=== PATIENT | male | born 1955 | race Caucasian/White ===

== ENCOUNTER 2018-06-06 14:20 | Emergency (ER) | payer OTHER ==
--- NOTE | 2018-06-06 15:11 | RAD REPORT ---
EXAM DESCRIPTION: CT - Head Brain Wo Cont - 06/06/2018 2:59 pm CLINICAL HISTORY: DIZZINESS<Reason For Exam>DIZZINESS Weakness, hypertension COMPARISON: No comparisons<Comparisons> TECHNIQUE: Axial 5 mm thick images of the head were obtained without IV contrast. All CT scans are performed using dose optimization technique as appropriate and may include automated exposure control or mA/KV adjustment according to patient size. FINDINGS: No intracranial hemorrhage, mass, edema or shift of mid-line structures. No acute infarcti on changes seen. No abnormal extra-axial fluid collections. Ventricles are normal. Mastoid air cells and visualized portions of the paranasal sinuses are clear. No acute bony findings. IMPRESSION: Negative non-contrast CT head examination.
[2018-06-06] MEDS ORDERED: MECLIZINE HCL 12.5 MG TAB ONE (16:05)
[2018-06-06] MEDS ORDERED: NA CHLORIDE 0.9% 1,000 ML ONE (16:05)
[2018-06-06] MEDS ORDERED: ONDANSETRON 4 MG/2 ML VIAL ONE (16:05)
[2018-06-06 16:11] LABS: Absolute Lymphocytes (CBC) 1.1 K/uL (0.7-4.9); Absolute Monocytes 0.7 K/uL (0.1-1.3); Absolute Neutrophil 7.3 K/uL (1.8-8.0); Basophils % 0.6 % (0-1.3); Eosinophils % 1.5 % (0-4.4); Hematocrit 44.3 % (39.6-49.0); Lymphocytes % 12.1 % (15.3-44.8); MCH 29.1 pg (27.0-35.0); MCV 85.7 fL (80-100); MPV 8.1 fL (7.6-11.3); Monocytes % 7.2 % (3.3-12.3); RBC Red Blood Cell Count 5.17 M/uL (4.33-5.43)
[2018-06-06 16:32] LABS: ALT/SGPT 25 U/L (12-78); AST/SGOT 14 U/L (15-37); Albumin 3.7 g/dL (3.4-5.0); Alkaline Phosphatase 69 U/L (45-117); BUN Blood Urea Nitrogen 22 mg/dL (7-18); Bicarbonate 31 mmol/L (21-32); Bilirubin Direct 0.1 mg/dL (0-0.2); Bilirubin Total 0.5 mg/dL (0.2-1.0); CKMB Creatine Kinase MB < 1.0 ng/mL (0.3-3.6); Creatine Phosphokinase 69 U/L (39-308); Glucose Level 135 mg/dL (74-106); Magnesium 2.5 mg/dL (1.8-2.4); NT PRO-BNP 30 pg/mL (<125); Potassium 4.5 mmol/L (3.5-5.1); Protein, Total 7.1 g/dL (6.4-8.2); Sodium Level 140 mmol/L (136-145); Troponin (Emerg Dept Use Only) < 0.02 ng/mL (0.0-0.045)
[2018-06-06 16:33] LABS: Protime INR 0.99
--- NOTE | 2018-06-06 17:10 | EDPHYS ---
Physician Documentation [facility] Name: Juan Carlos Yousif Age: 62 yrs Sex: Male : 1955 Arrival Date: 06/06/2018 Time: 14:23 Bed 30 Private MD: Daniela Singh ED Physician Cas Cabezas HPI: 06/06 15:25 This 62 yrs old Male presents to ER via Ambulatory with complaints of cp Dizziness. 15:25 The patient presents with feeling faint, lightheadedness. Onset: The symptoms/episode cp began/occurred yesterday. Modifying factors: the symptoms are aggravated by bending over and lying flat. Associated signs and symptoms: Pertinent positives: abdominal pain, Pertinent negatives: chest pain, focal weakness, headache, shortness of breath, syncope, vomiting. Patient's baseline: Neuro: alert and fully oriented, Motor: no deficits, Ambulation: walks without assistance, Speech: normal. Historical: - Allergies: 14:27 No Known Allergies; la1 - PMHx: 14:27 Hypertension; High Cholesterol; la1 - Immunization history:: Adult Immunizations up to date. - Social history:: Smoking status: Patient/guardian denies using tobacco. - Ebola Screening: : No symptoms or risks identified at this time. ROS: 15:30 Constitutional: Negative for body aches, chills, fever, poor PO intake. cp 15:30 Eyes: Negative for injury, pain, redness, and discharge. cp 15:30 ENT: Negative for drainage from ear(s), ear pain, sore throat, difficulty swallowing, difficulty handling secretions. 15:30 Cardiovascular: Negative for chest pain, edema, palpitations. 15:30 Respiratory: Negative for cough, shortness of breath, wheezing. 15:30 Abdomen/GI: Negative for abdominal pain, nausea, vomiting, and diarrhea, constipation, anorexia, black/tarry stool, rectal bleeding. 15:30 : Negative for urinary symptoms. 15:30 Skin: Negative for cellulitis, rash. 15:30 Neuro: Positive for dizziness, Negative for altered mental status, headache, numbness, syncope, near syncope, weakness. 15:30 All other systems are negative. Exam: 15:35 Constitutional: The patient appears in no acute distress, alert, awake, cp non-diaphoretic, non-toxic, well developed, well nourished. 15:35 Head/Face: Normocephalic, atraumatic. Eyes: Pupils equal round and reactive to light, cp extra-ocular motions intact. Lids and lashes normal. Conjunctiva and sclera are non-icteric and not injected. Cornea within normal limits. Periorbital areas with no swelling, redness, or edema. ENT: Nares patent. No nasal discharge, no septal abnormalities noted. Tympanic membranes are normal and external auditory canals are clear. Oropharynx with no redness, swelling, or masses, exudates, or evidence of obstruction, uvula midline. Mucous membranes moist. Chest/axilla: Normal chest wall appearance and motion. Nontender with no deformity. No lesions are appreciated. 15:35 Cardiovascular: Rate: bradycardic, Rhythm: regular, Pulses: Pulses are 2+ in right radial artery and left radial artery. Heart sounds: murmur, not appreciated, Edema: is not appreciated, JVD: is not appreciated. 15:35 Respiratory: the patient does not display signs of respiratory distress, Respirations: normal, no use of accessory muscles, no retractions, no splinting, no tachypnea, labored breathing, is not present, Breath sounds: are clear throughout, no decreased breath sounds, no stridor, no wheezing. 15:35 Abdomen/GI: Inspection: abdomen appears normal, Bowel sounds: active, all quadrants, Palpation: abdomen is soft and non-tender, in all quadrants. 15:35 Skin: cellulitis, is not appreciated, no rash present. 15:35 Neuro: Orientation: to person, place \T\ time. Mentation: lucid, able to follow commands, Cerebellar function: is grossly normal, Motor: moves all fours, strength is normal, Sensation: no obvious gross deficits. 16:30 ECG was reviewed by the Attending Physician. cp Vital Signs: 14:27 BP 175 / 83; Pulse 60; Resp 19; Temp 97.5(TE); Pulse Ox 100% on R/A; Weight 79.38 kg; la1 Height 5 ft. 8 in. (172.72 cm); 15:06 BP 155 / 75; Pulse 57; Resp 18; Pulse Ox 99% on R/A; Pain 2/10; mg2 16:10 BP 145 / 77 Supine; mg2 16:10 BP 146 / 79 Sitting; mg2 16:10 BP 148 / 76 Standing; mg2 17:37 BP 147 / 70; Pulse 59; Resp 18; Pulse Ox 100% on R/A; Pain 0/10; mg2 14:27 Body Mass Index 26.61 (79.38 kg, 172.72 cm) la1 MDM: 15:19 Patient medically screened. cp 16:00 Differential diagnosis: cardiac arrhythmia, CVA, GI bleed, hypovolemia, idiopathic cp dizziness, TIA, vertigo. 17:08 Data reviewed: vital signs, nurses notes, lab test result(s), EKG, radiologic studies, cp CT scan, and as a result, I will discharge patient. Response to treatment: the patient's symptoms have markedly improved after treatment. 06/06 15:37 Order name: Basic Metabolic Panel; Complete Time: 16:44 cp 06/06 16:44 Interpretation: Normal except: GLUC 135; BUN 22; GFR 62. 06/06 15:37 Order name: CBC with Diff; Complete Time: 16:44 06/06 16:45 Interpretation: Normal except: CANDIDO% 78.6; LYM% 12.1. cp 06/06 15:37 Order name: Ckmb; Complete Time: 16:44 cp 06/06 15:37 Order name: CPK; Complete Time: 16:44 cp 06/06 15:37 Order name: LFT's; Complete Time: 16:44 cp 06/06 15:37 Order name: Magnesium; Complete Time: 16:44 cp 06/06 14:30 Order name: Head Brain Wo Cont CT; Complete Time: 15:22 [facility] 06/06 15:37 Order name: NT PRO-BNP; Complete Time: 16:44 cp 06/06 15:37 Order name: PT-INR; Complete Time: 16:44 cp 06/06 15:37 Order name: Ptt, Activated; Complete Time: 16:44 cp 06/06 15:37 Order name: Troponin (emerg Dept Use Only); Complete Time: 16:44 cp 06/06 16:46 Interpretation: Reviewed. cp 06/06 15:37 Order name: XRAY Chest (1 view) 06/06 16:46 Order name: Urine Dipstick--Ancillary (enter results) 06/06 15:29 Order name: Orthostatics; Complete Time: 16:09 cp 06/06 15:37 Order name: EKG; Complete Time: 15:39 cp 06/06 15:37 Order name: Cardiac monitoring; Complete Time: 16:23 cp 06/06 15:37 Order name: EKG - Nurse/Tech; Complete Time: 16:23 cp 06/06 15:37 Order name: IV Saline Lock; Complete Time: 16:09 cp 06/06 15:37 Order name: Labs collected and sent; Complete Time: 16:09 cp 06/06 15:37 Order name: O2 Per Protocol; Complete Time: 16:09 cp 06/06 15:37 Order name: O2 Sat Monitoring; Complete Time: 16:09 cp 06/06 15:37 Order name: Urine Dipstick-Ancillary (obtain specimen); Complete Time: 16:46 cp EC:30 Rate is 54 beats/min. Rhythm is regular. MO interval is normal. QRS interval is normal. cp QT interval is normal. No ST changes noted. Interpreted by me. Reviewed by me. Administered Medications: 16:09 Drug: Meclizine 25 mg Route: PO; mg2 17:36 Follow up: Response: No adverse reaction; Marked relief of symptoms mg2 16:09 Drug: Zofran 4 mg Route: IVP; Site: right antecubital; mg2 17:26 Follow up: Response: No adverse reaction mg2 17:36 Follow up: Response: No adverse reaction; Marked relief of symptoms mg2 16:09 Drug: NS 0.9% 1000 ml Route: IV; Rate: 125 ml/hr; Site: right antecubital; mg2 Disposition: 18:35 Co-signature as Attending Physician, Cas Cabezas MD I agree with the assessment and kdr plan of care. Disposition: 06/06/18 17:09 Discharged to Home. Impression: Dizziness and giddiness. - Condition is Stable. - Discharge Instructions: Dizziness. - Prescriptions for Meclizine 25 mg Oral Tablet - take 1 tablet by ORAL route every 8 hours As needed; 30 tablet. Zofran 4 mg Oral Tablet - take 1 tablet by ORAL route every 12 hours As needed; 20 tablet. - Medication Reconciliation Form, Thank You Letter, Antibiotic Education, Prescription Opioid Use form. - Follow up: Messi Park MD; When: 2 - 3 days; Reason: Recheck today's complaints. - Problem is new. - Symptoms have improved. Signatures: Dispatcher [employer] EDMS Cas Cabezas MD MD kdr Raphael Melissa RN RN la1 Ronak Armijo PA PA cp Damion Huff RN RN mg2 Corrections: (The following items were deleted from the chart) 17:38 17:09 06/06/2018 17:09 Discharged to Home. Impression: Dizziness and giddiness. mg2 Condition is Stable. Forms are Medication Reconciliation Form, Thank You Letter, Antibiotic Education, Prescription Opioid Use. Follow up: Messi Park; When: 2 - 3 days; Reason: Recheck today's complaints. Problem is new. Symptoms have improved. cp
--- NOTE | 2018-06-06 17:10 | ER ---
Nurse's Notes [facility] Name: Juan Carlos Yousif Age: 62 yrs Sex: Male : 1955 Arrival Date: 06/06/2018 Time: 14:23 Bed 30 Private MD: Daniela Singh Diagnosis: Dizziness and giddiness Presentation: 06/06 14:27 Presenting complaint: Patient states: dizziness since yesterday morning, worse with la1 laying down and bending over. Transition of care: patient was not received from another setting of care. Onset of symptoms was June 06, 2018. Risk Assessment: Do you want to hurt yourself or someone else? Patient reports no desire to harm self or others. Initial Sepsis Screen: Does the patient meet any 2 criteria? No. Patient's initial sepsis screen is negative. Does the patient have a suspected source of infection? No. Patient's initial sepsis screen is negative. Care prior to arrival: None. 14:27 Method Of Arrival: Ambulatory la1 14:27 Acuity: GALINA 3 la1 Triage Assessment: 17:38 General: Appears in no apparent distress. comfortable, Behavior is calm, cooperative. mg2 Pain: Denies pain. Historical: - Allergies: 14:27 No Known Allergies; la1 - PMHx: 14:27 Hypertension; High Cholesterol; la1 - Immunization history:: Adult Immunizations up to date. - Social history:: Smoking status: Patient/guardian denies using tobacco. - Ebola Screening: : No symptoms or risks identified at this time. Screenin:03 Abuse screen: Denies threats or abuse. Denies injuries from another. Nutritional mg2 screening: No deficits noted. Tuberculosis screening: No symptoms or risk factors identified. Fall Risk Secondary diagnosis (15 points) dizziness. Assessment: 15:00 Reassessment: patient is in ct scan right now. mg2 Vital Signs: 14:27 BP 175 / 83; Pulse 60; Resp 19; Temp 97.5(TE); Pulse Ox 100% on R/A; Weight 79.38 kg; la1 Height 5 ft. 8 in. (172.72 cm); 15:06 BP 155 / 75; Pulse 57; Resp 18; Pulse Ox 99% on R/A; Pain 2/10; mg2 16:10 BP 145 / 77 Supine; mg2 16:10 BP 146 / 79 Sitting; mg2 16:10 BP 148 / 76 Standing; mg2 17:37 BP 147 / 70; Pulse 59; Resp 18; Pulse Ox 100% on R/A; Pain 0/10; mg2 14:27 Body Mass Index 26.61 (79.38 kg, 172.72 cm) la1 ED Course: 14:23 Patient arrived in ED. mr 14:23 Daniela Singh MD is Private Physician. mr 14:27 Triage completed. la1 14:28 Arm band placed on left wrist. la1 15:00 Head Brain Wo Cont CT In Process Unspecified. EDMS 15:00 Damion Huff, BAO is Primary Nurse. mg2 15:06 Patient has correct armband on for positive identification. Bed in low position. Call mg2 light in reach. Side rails up X2. Pulse ox on. NIBP on. 15:16 Ronak Armijo PA is PHCP. cp 15:16 Cas Cabezas MD is Attending Physician. cp 16:09 No provider procedures requiring assistance completed. Inserted saline lock: 20 gauge mg2 in right antecubital area, using aseptic technique. Blood collected. 16:46 XRAY Chest (1 view) In Process Unspecified. EDMS 17:09 Messi Park MD is Referral Physician. cp 17:37 IV discontinued, intact, bleeding controlled, No redness/swelling at site. Pressure mg2 dressing applied. Administered Medications: 16:09 Drug: Meclizine 25 mg Route: PO; mg2 17:36 Follow up: Response: No adverse reaction; Marked relief of symptoms mg2 16:09 Drug: Zofran 4 mg Route: IVP; Site: right antecubital; mg2 17:26 Follow up: Response: No adverse reaction mg2 17:36 Follow up: Response: No adverse reaction; Marked relief of symptoms mg2 16:09 Drug: NS 0.9% 1000 ml Route: IV; Rate: 125 ml/hr; Site: right antecubital; mg2 Outcome: 17:09 Discharge ordered by . cp 17:37 Discharged to home ambulatory. mg2 17:37 Condition: stable 17:37 Discharge instructions given to patient, Instructed on discharge instructions, follow up and referral plans. medication usage, Demonstrated understanding of instructions, follow-up care, medications, Prescriptions given X 2. 17:38 Patient left the ED. mg2 Signatures: Dispatcher [employer] EDAK Shae Sauceda Lee RN RN la1 Ronak Armijo PA PA Damion Arreola, RN RN mg2
--- NOTE | 2018-06-06 17:49 | RAD REPORT ---
EXAM DESCRIPTION: RAD - Chest Single View - 06/06/2018 4:46 pm CLINICAL HISTORY: dizziness<Reason For Exam>dizziness Shortness of breath COMPARISON: RAD CHEST PA AND LAT (2 VIEWS) dated 09/21/2014<Comparisons> TECHNIQUE: AP portable chest image was obtained 1547 hours . FINDINGS: Lungs are clear. Heart and vasculature are normal. No measurable pleural effusion and no p neumothorax. No acute bone finding. There is overlap in the midshaft right clavicle. This has the shay earance of an old fracture. This has developed since 2013. No history of recent trauma. Correlation i s needed with right clavicle injury history. No acute aortic findings suspected. IMPRESSION: No acute cardiopulmonary process. Deformity in the midshaft clavicle is believed to be an old fracture that occurred subsequent to the 2013 study.
[2018-06-06 17:50] VITALS: TEMP 97.5
[2018-06-06 17:55] VITALS: BP 147/70; O2SAT 100
[2018-06-06 17:58] LABS: Urine Blood NEGATIVE (NEG); Urine Glucose NEGATIVE (NEG); Urine Protein NEGATIVE (NEG); Urine Specific Gravity 1.015 (1.005-1.030)
--- NOTE | 2018-06-07 08:38 | EKG ---
Test Date: 2018-06-06 Test Time: 16:20:10 Floor Finisher Helper: MG MEASUREMENT RESULTS: Intervals: Rate: 54 [place]: 184 QRSD: 100 QT: 416 QTc: 394 [place]: P: 59 [place]: 184 QRS: -8 T: 5 INTERPRETIVE STATEMENTS: Sinus bradycardia Otherwise normal ECG Compared to ECG 09/21/2014 09:02:07 No significant changes Electronically Signed On 06-07-18 08:36:28 CDT by Angelo Millan
== END 2018-06-06 17:38 | disposition home or self-care (01) ==
LOC: ER 14:20
DX: R42 Dizziness and giddiness (principal); I10 Essential (primary) hypertension
CPT/HCPCS: 36415; 70450; 71045; 80048; 80076; 81003; 82550; 82553; 83735; 83880; 84484; 85025; 85610; 85730; 93005; 96374; 99284; J2405; J7030

== ENCOUNTER 2023-11-26 07:01 | Day surgery (SDC) | payer OTHER ==
[2023-10-31 10:20] LABS: Protime INR 1.03
[2023-10-31 10:25] LABS: Potassium 4.4 mEq/L (3.5-5.1)
[2023-10-31 10:28] LABS: Absolute Lymphocytes (CBC) 2.1 K/uL (0.7-4.9); Hematocrit 44.9 % (39.6-49.0); MCV 86.8 fL (80-100); MPV 8.3 fL (7.6-11.3); Platelets 279 thou/uL (152-406); RBC Red Blood Cell Count 5.17 M/uL (4.33-5.43)
--- NOTE | 2023-10-31 12:03 | RAD REPORT ---
EXAM DESCRIPTION: RAD - Chest Pa And Lat (2 Views) - 10/31/2023 9:50 am CLINICAL HISTORY: Pre op pending rotator cuff repair. Hypertension COMPARISON: Chest Single View dated 06/06/2018 TECHNIQUE: PA and lateral views of the chest were obtained. FINDINGS: The lungs are clear. Heart size is normal and central vasculature is within normal limits. No pleural effusion or pneumothorax seen. No acute bony finding noted. IMPRESSION: No acute cardiopulmonary process.
--- NOTE | 2023-10-31 15:06 | EKG ---
Test Date: 2023-10-31 Test Time: 10:34:54 Mortgage Assistant: EMA MEASUREMENT RESULTS: Intervals: Rate: 56 TN: 198 QRSD: 92 QT: 422 QTc: 407 [place]: P: 50 TN: 198 QRS: -23 T: 55 INTERPRETIVE STATEMENTS: Sinus bradycardia with premature atrial complexes Septal infarct, age undetermined Abnormal ECG Compared to ECG 06/06/2018 16:20:10 Atrial premature complex(es) now present Myocardial infarct finding now present Electronically Signed On 10-31-23 15:06:09 ADVERTISING INTERN by Greg Colindres
[2023-11-26] MEDS ORDERED: MIDAZOLAM HCL 2 MG/2 ML INJ ONE (07:19)
[2023-11-26] MEDS ORDERED: FENTANYL CITR 100 MCG/2 ML ONE (07:19)
[2023-11-26] MEDS ORDERED: LIDOCAINE 1% MPF 5 ML VIAL ONE ×2 (07:19→07:21)
[2023-11-26] MEDS ORDERED: dexAMETHasone 10 MG/ML VIAL ONE (07:19)
[2023-11-26] MEDS ORDERED: EPINEPHRINE 1 MG/ML VIAL ONE (07:19)
[2023-11-26] MEDS ORDERED: ROCURONIUM 50 MG/5 ML VIAL IV ONE (07:21)
[2023-11-26] MEDS ORDERED: propofoL 200 MG/20 ML VIAL IV ONE (07:21)
[2023-11-26] MEDS: Ringers Lactate 1,000 ML IV ONE ×2 (07:25→09:57)
[2023-11-26] MEDS: CEFAZOLIN SODIUM 2 GM/VIAL ONE (08:15)
[2023-11-26] MEDS: EPINEPHRINE 1 MG/ML VIAL ONE (08:15)
[2023-11-26] MEDS ORDERED: EPHEDRINE SULF 50 MG/ML VIAL ONE (08:38)
[2023-11-26] MEDS ORDERED: KETOROLAC 30 MG/ML INJ ONE (08:40)
[2023-11-26] MEDS ORDERED: ONDANSETRON 4 MG/2 ML VIAL ONE (08:40)
[2023-11-26] MEDS ORDERED: dexAMETHasone 4 MG/ML VIAL ONE (08:40)
[2023-11-26] MEDS ORDERED: GLYCOPYRROLATE 0.2 MG/ML SYR ONE (09:55)
[2023-11-26] MEDS ORDERED: NEOSTIGMINE 1 MG/ML -10 ML VIAL ONE (09:55)
--- NOTE | 2023-11-26 10:05 | P.BOP ---
Preoperative diagnosis: right shoulder rotator cuff tear, impingement syndrome, adhesive capsulitis Postoperative diagnosis: same Primary procedure: right shoulder arthroscopic rotator cuff repair Secondary procedure: right shoulder arthroscopic subacromial decompression Other procedure(s): right shoulder manipulation under anesthesia and lysis of adhesions Goal Umpire: NONE,NONE Estimated blood loss: 5 cc Specimen: none Findings: see dictation Anesthesia: General Complications: None Implants: 1- 4.75 mm swivelock Fluids & blood products: per anesthesia record Transferred to: Recovery Room Condition: Good
--- NOTE | 2023-11-26 11:03 | RAD REPORT ---
EXAM DESCRIPTION: RAD - Shoulder 1 View - 11/26/2023 10:51 am CLINICAL HISTORY: RIGHT ROTATOR CUFF REPAIR/SHOUDLER MANIPULATION FINDINGS: Old right clavicular fracture No acute fracture or dislocation Osteoporosis Mild glenohumeral joint space narrowing Densities proximal right humeral diaphysis may indicate small infarct
[2023-11-26 12:28] VITALS: BP 129/69; TEMP 97.8; O2SAT 97
--- NOTE | 2023-11-28 20:36 | OP ---
Date of Procedure: 11/26/2023 Surgeon: Favio Mckeon MD Preoperative Diagnoses: 1.Right shoulder rotator cuff tear. 2.Right shoulder impingement syndrome. 3.Right shoulder adhesive capsulitis. Postoperative Diagnoses: 1.Right shoulder rotator cuff tear. 2.Right shoulder impingement syndrome. 3.Right shoulder adhesive capsulitis. Procedure Performed: 1.Right shoulder arthroscopic rotator cuff repair. 2.Right shoulder arthroscopic subacromial decompression. 3.Right shoulder manipulation under anesthesia with lysis of adhesions. Anesthesia: General endotracheal. Fluids: Per Anesthesia record. Estimated Blood Loss: 5 cc. Complications: None. Implants: One 4.75 mm Arthrex SwiveLock. Indication For Procedure: Juan Carlos is a 68-year-old male who presented to my clinic with signs, symptom s, and MRI findings consistent with right shoulder adhesive capsulitis and an anterior rotator cuff t ear. The patient failed conservative treatment measures and had significant pain and weakness that i nterfered with activities of daily living. I discussed the patient at length risks and benefits asso ciated with operative and nonoperative treatment measures. He expressed understanding and elected to proceed with operative treatment. Description Of Procedure: After informed consent was obtained, the patient was identified in the pre operative holding area. The right upper extremity was marked. The patient was then brought back to the PACU where he underwent an interscalene block to his right upper extremity. The patient was then brought back to the operating room, transferred to the operating table in a supine fashion, placed u nder general endotracheal anesthesia. He was then placed in the beach chair position with his extrem ities well padded. A time-out was initiated. The correct patient and procedure were confirmed and i dentified. The patient did receive his preoperative prophylactic antibiotics. At that time, a manip ulation under anesthesia was performed, stabilizing his scapula with 1 hand. The right upper extremi ty was then gently range with forward flexion with some audible pops being felt consistent with relea se of scar tissue. This was brought into forward flexion, abduction, external rotation. After this, the right upper extremity was then prepped and draped in usual sterile fashion. A spinal needle was then introduced into the glenohumeral joint via the posterior portal position. A 30 cc of normal sa line was injected into the shoulder joint to distend the capsule. Posterior portal was created. Art hroscope was brought in via the posterior portal position for diagnostic arthroscopy. Under direct v isualization, an anterior portal and cannula were placed. Diagnostic arthroscopy was performed. The patient was noted to have been stable anterior and posterior labrum, stable superior labrum. There was some hyperemia around the labrum as well as rotator cuff interval consistent with some adhesive c apsulitis. Biceps tendon was found to be stable and intact and extra-articular portion of the biceps tendon was brought into the joint using the probe. There was no significant tearing or fraying note d. The undersurface of the rotator cuff was then identified and noted to be without significant tear s anterior posteriorly. The subscapularis was stable to probing. There were no loose bodies within the axillary pouch. The arthroscope was then brought into subacromial space and subacromial bursecto my was performed. The shoulder was then ranged and there was noted to be a small tear of the anterio r portion of the supraspinatus. A FiberTape was then placed through the rest of the rotator cuff tea r and an anterior posterior fashion and brought down to the greater tuberosity and SwiveLock anchor w as placed to help repair and reduce the tissue. Remaining suture limbs were then cut. There was goo d overall reduction of rotator cuff tear. There was some fraying of the coracoacromial ligament and an acromioplasty was performed using a radiofrequency frequency ablator and an arthroscopic bella to p erform a subacromial decompression. Arthroscopic instruments were then removed without complication. Wounds were then irrigated thoroughly with normal saline. Portals were approximated using a 5-0 Mo nocryl. Sterile dressings were applied. The patient was placed in a shoulder immobilizer, awakened, and transferred to PACU in stable condition. Postoperative Plan: The patient will follow the small rotator cuff repair protocol and begin physica l therapy at 3 weeks postop. CV/MODL Voice ID: [id number] Report ID: [id number]
== END 2023-11-26 12:02 | disposition home or self-care (01) ==
LOC: OR 07:01
PROVIDERS: ATTEND Orthopaedic Surgery Sports Medicine
PROC: 0RSJXZZ Reposition Right Shoulder Joint, External Approach (ICD-10-PCS; 2023-11-26)
PROC: 0RNJ4ZZ Release Right Shoulder Joint, Percutaneous Endoscopic Approach (ICD-10-PCS; principal; 2023-11-26 11:00)
PROC: 0LM14ZZ Reattachment of Right Shoulder Tendon, Percutaneous Endoscopic Approach (ICD-10-PCS; 2023-11-26 11:00)
DX: S46.011A Strain of muscle(s) and tendon(s) of the rotator cuff of right shoulder, initial encounter (principal); M75.21 Bicipital tendinitis, right shoulder; M75.41 Impingement syndrome of right shoulder; M75.01 Adhesive capsulitis of right shoulder
CPT/HCPCS: 29827; 29826; 23700; 93005; 85025; 80048; 36415; 85610; 85730; 71046; 73020; J2704; J1100 ×2; J2710; J2001 ×2; J2250; J3010; J0171 ×2; J2405; J7120 ×2